=== PATIENT | female | born 1940 | race Caucasian/White ===

== ENCOUNTER 2016-05-14 15:14 | Outpatient (RCR) | payer MEDICARE, OTHER ==
[2016-03-26 09:03] LABS: BASOPHILS % (AUTO) 1 % (0-10); EOSINOPHILS # (AUTO) 0.1 10^3/uL (0.0-0.3); EOSINOPHILS % (AUTO) 3 % (0-10); LYMPHOCYTES # (AUTO) 1.2 X 10^3 (1.0-4.0); LYMPHOCYTES % (AUTO) 25 % (12-44); MEAN CORPUSCULAR HEMOGLOBIN 34 PG (25-34); MEAN CORPUSCULAR HGB CONC 35 G/DL (32-36); MEAN CORPUSCULAR VOLUME 98 FL (80-99); MEAN PLATELET VOLUME 9.6 FL (7.4-10.4); MONOCYTES # (AUTO) 0.5 X 10^3 (0.0-1.0); MONOCYTES % (AUTO) 10 % (0-12); NEUTROPHILS % (AUTO) 62 % (42-75); PLATELET COUNT 180 10^3/uL (130-400); RED BLOOD COUNT 4.19 10^6/uL (4.35-5.85); WHITE BLOOD COUNT 4.9 10^3/uL (4.3-11.0)
[2016-03-26 09:59] LABS: ALANINE AMINOTRANSFERASE 25 U/L (0-55); ALBUMIN 4.5 G/DL (3.2-4.5); ANION GAP 12 MMOL/L (5-14); ASPARTATE AMINO TRANSFERASE 30 U/L (5-34); BILIRUBIN,TOTAL 0.7 MG/DL (0.1-1.0); BLOOD UREA NITROGEN 19 MG/DL (7-18); BUN/CREATININE RATIO 23; CALCIUM 9.5 MG/DL (8.5-10.1); CARBON DIOXIDE 20 MMOL/L (21-32); CHLORIDE 104 MMOL/L (98-107); CREATININE SERUM 0.82 MG/DL (0.60-1.30); GFR ESTIMATED > 60; GLUCOSE 102 MG/DL (70-105); POTASSIUM 4.3 MMOL/L (3.6-5.0); SODIUM 136 MMOL/L (135-145); TOTAL PROTEIN 6.7 G/DL (6.4-8.2)
[~2016-05-14 15:14] MED LIST: ASCO100T6 PO; CALC-151 PO; CHOL100084 PO; HYDR-3454 PO; MULT-856 PO
[2016-05-14 16:29] LABS: THYROID STIMULATING HORMONE 2.6 UIU/ML (0.35-4.94)
== END 2016-06-24 | disposition home or self-care (01) ==
LOC: ONC 15:14
PROVIDERS: ATTEND Internal Medicine Hematology & Oncology
DX: C09.1 Malignant neoplasm of tonsillar pillar (anterior) (posterior) (principal); J44.9 Chronic obstructive pulmonary disease, unspecified; R91.1 Solitary pulmonary nodule; Z87.891 Personal history of nicotine dependence; Z92.21 Personal history of antineoplastic chemotherapy; Z92.3 Personal history of irradiation
CPT/HCPCS: 36591; 80053; 84439; 84443; 85025; 99213

== ENCOUNTER 2016-08-22 13:46 | Outpatient (RCR) | payer MEDICARE ==
--- OUTSIDE RECORDS SUMMARY | 2016-06-25 14:23 | XMS REPORT | Continuity of Care Document ---
Author Author [facility] Organization [facility] Address Unknown Phone Unavailable Care Team Providers Care Superintendent Commiss[employer] Name Role Phone JASMIN SLAAS DO PCP Insurance Providers Payer Name Policy Number Subscriber Name Relationship [employer] [id number] Cruz Jo 17 Self / Same As Patient Enter Insurance Name [id number] Cruz Jo Self / Same As Patient Advance Directives Directive Response Recorded Date/Time Advance Directives No 06/24/14 1:00pm Organ Donor No 06/24/14 1:00pm Problems No problem information available. Medications Current Home Medications Medication Dose Units Route Directions Days/Qty Instructions Start Date Multivits W-Fe,Other Min/Lut 1 Each 1 Each Oral Daily 06/18/14 Calcium Citrate/Vitamin D3 1 Each 1 Each Oral Daily 06/18/14 Cholecalciferol 1,000 Unit 1,000 Unit Oral Daily 06/18/14 Ascorbic Acid 100 Mg 100 Mg Oral Daily 06/18/14 Hydrocodone Bit/Acetaminophen 1 Each 1 Each Oral Every 6 Hours as needed for Pain 06/24/14 Social History Social History Problem Response Recorded Date/Time Recent Foreign Travel N [place] 05/14/2016 3:14pm Hospital Discharge Instructions No hospital discharge instructions. Plan of Care Prescriptions See Medication Section Functional Status No functional status results. Allergies, Adverse Reactions, Alerts Allergen Type Severity Reaction Status Last Updated ciprofloxacin ([id number]) Allergy Intermediate ANAPHYLAXIS Active Immunizations No immunization records. Vital Signs No known vital signs results. Results Laboratory Results Test Name Result Units Flags Reference Collection Date/Time Result Date/ Time Comments White Blood Count 4.9 10^3/uL 4.3-11.0 03/26/2016 8:50am 03/26/2016 9: 06am Red Blood Count 4.19 10^6/uL L 4.35-5.85 03/26/2016 8:50am 03/26/2016 9: 06am Hemoglobin 14.3 G/DL 11.5-16.0 03/26/2016 8:50am 03/26/2016 9:06am Hematocrit 41 % 35-52 03/26/2016 8:50am 03/26/2016 9:06am Mean Corpuscular Volume 98 FL 80-99 03/26/2016 8:50am 03/26/2016 9: 06am Mean Corpuscular Hemoglobin 34 PG 25-34 03/26/2016 8:50am 03/26/2016 9: 06am Mean Corpuscular Hemoglobin Concent 35 G/DL 32-36 03/26/2016 8:50am 03/2016 9:06am Red Cell Distribution Width 13.0 % 10.0-14.5 03/26/2016 8:50am 2015 9:06am Platelet Count 180 10^3/uL 130-400 03/26/2016 8:50am 03/26/2016 9:06am Mean Platelet Volume 9.6 FL 7.4-10.4 03/26/2016 8:50am 03/26/2016 9: 06am Neutrophils (%) (Auto) 62 % 42-75 03/26/2016 8:50am 03/26/2016 9:06am Lymphocytes (%) (Auto) 25 % 12-44 03/26/2016 8:50am 03/26/2016 9:06am Monocytes (%) (Auto) 10 % 0-12 03/26/2016 8:50am 03/26/2016 9:06am Eosinophils (%) (Auto) 3 % 0-10 03/26/2016 8:50am 03/26/2016 9:06am Basophils (%) (Auto) 1 % 0-10 03/26/2016 8:50am 03/26/2016 9:06am Neutrophils # (Auto) 3.0 X 10^3 1.8-7.8 03/26/2016 8:50am 03/26/2016 9: 06am Lymphocytes # (Auto) 1.2 X 10^3 1.0-4.0 03/26/2016 8:50am 03/26/2016 9: 06am Monocytes # (Auto) 0.5 X 10^3 0.0-1.0 03/26/2016 8:50am 03/26/2016 9: 06am Eosinophils # (Auto) 0.1 10^3/uL 0.0-0.3 03/26/2016 8:50am 03/26/2016 9 :06am Basophils # (Auto) 0.0 10^3/uL 0.0-0.1 03/26/2016 8:50am 03/26/2016 9: 06am Sodium Level 136 MMOL/L 135-145 03/26/2016 8:50am 03/26/2016 10:02am Potassium Level 4.3 MMOL/L 3.6-5.0 03/26/2016 8:50am 03/26/2016 10: 02am Chloride Level 104 MMOL/L 98-107 03/26/2016 8:50am 03/26/2016 10:02am Carbon Dioxide Level 20 MMOL/L L 21-32 03/26/2016 8:50am 03/26/2016 10: 02am Anion Gap 12 MMOL/L 5-14 03/26/2016 8:50am 03/26/2016 10:02am Blood Urea Nitrogen 19 MG/DL H 7-18 03/26/2016 8:50am 03/26/2016 10:02am Creatinine 0.82 MG/DL 0.60-1.30 03/26/2016 8:50am 03/26/2016 10:02am BUN/Creatinine Ratio 23 03/26/2016 8:50am 03/26/2016 10:02am Estimat Glomerular Filtration Rate > 60 03/26/2016 8:50am 2015 10:02am GFR INTERPRETIVE DATA UNITS FOR ESTIMATED GFR (eGFR): mL/min/1.73 M2 REFERENCE RANGE FOR ESTIMATED GFR (eGFR) eGFR NORMAL eGFR >60 MODERATELY DECREASED eGFR 30-59 SEVERLY DECREASED eGFR 15-29 KIDNEY FAILURE <15 (OR DIALYSIS) Glucose Level 102 MG/DL 70-105 03/26/2016 8:50am 03/26/2016 10:02am Calcium Level 9.5 MG/DL 8.5-10.1 03/26/2016 8:50am 03/26/2016 10:02am Total Bilirubin 0.7 MG/DL 0.1-1.0 03/26/2016 8:50am 03/26/2016 10:02am Alkaline Phosphatase 64 U/L 40-136 03/26/2016 8:50am 03/26/2016 10: 02am Aspartate Amino Transf (AST/SGOT) 30 U/L 5-34 03/26/2016 8:50am 2015 10:02am Alanine Aminotransferase (ALT/SGPT) 25 U/L 0-55 03/26/2016 8:50am 03/26 10:02am Total Protein 6.7 G/DL 6.4-8.2 03/26/2016 8:50am 03/26/2016 10:02am Albumin 4.5 G/DL 3.2-4.5 03/26/2016 8:50am 03/26/2016 10:02am Thyroid Stimulating Hormone (TSH) 2.60 UIU/ML 0.35-4.94 05/14/2016 2: 50pm 05/14/2016 4:30pm Free Thyroxine 1.20 NG/DL 0.70-1.48 05/14/2016 2:50pm 05/14/2016 4: 30pm Procedures No known history of procedures. Encounters Encounter Location Arrival/Admit Date Discharge/Depart Date Attending Provider Discharged [facility] 05/14/16 3:14pm 11:59pm YUMIKO HARTLEY MD
[2016-06-25 15:24] LABS: BASOPHILS # (AUTO) 0.1 10^3/uL (0.0-0.1); BASOPHILS % (AUTO) 1 % (0-10); EOSINOPHILS # (AUTO) 0.1 10^3/uL (0.0-0.3); EOSINOPHILS % (AUTO) 2 % (0-10); LYMPHOCYTES % (AUTO) 21 % (12-44); MEAN CORPUSCULAR HEMOGLOBIN 34 PG (25-34); MEAN CORPUSCULAR HGB CONC 34 G/DL (32-36); MEAN CORPUSCULAR VOLUME 100 FL (80-99); MEAN PLATELET VOLUME 9.5 FL (7.4-10.4); MONOCYTES # (AUTO) 0.5 X 10^3 (0.0-1.0); MONOCYTES % (AUTO) 10 % (0-12); NEUTROPHILS # (AUTO) 3.2 X 10^3 (1.8-7.8); NEUTROPHILS % (AUTO) 66 % (42-75); PLATELET COUNT 188 10^3/uL (130-400); RED BLOOD COUNT 4.11 10^6/uL (4.35-5.85); RED CELL DISTRIBUTION WIDTH 13.5 % (10.0-14.5); WHITE BLOOD COUNT 4.8 10^3/uL (4.3-11.0)
[2016-06-25 15:50] LABS: ALANINE AMINOTRANSFERASE 22 U/L (0-55); ALBUMIN 4.5 G/DL (3.2-4.5); ANION GAP 10 MMOL/L (5-14); ASPARTATE AMINO TRANSFERASE 30 U/L (5-34); BILIRUBIN,TOTAL 0.3 MG/DL (0.1-1.0); BLOOD UREA NITROGEN 22 MG/DL (7-18); BUN/CREATININE RATIO 25; CALCIUM 9.3 MG/DL (8.5-10.1); CARBON DIOXIDE 25 MMOL/L (21-32); CHLORIDE 101 MMOL/L (98-107); CREATININE SERUM 0.87 MG/DL (0.60-1.30); GFR ESTIMATED > 60; GLUCOSE 135 MG/DL (70-105); POTASSIUM 4.4 MMOL/L (3.6-5.0); SODIUM 136 MMOL/L (135-145); TOTAL PROTEIN 6.8 G/DL (6.4-8.2)
[2016-06-25 16:18] LABS: THYROID STIMULATING HORMONE 2.38 UIU/ML (0.35-4.94)
== END 2016-09-23 | disposition home or self-care (01) ==
LOC: ONC 13:46
PROVIDERS: ATTEND Internal Medicine Hematology & Oncology
DX: C09.1 Malignant neoplasm of tonsillar pillar (anterior) (posterior) (principal); E03.9 Hypothyroidism, unspecified; J44.9 Chronic obstructive pulmonary disease, unspecified; R91.1 Solitary pulmonary nodule; Z87.891 Personal history of nicotine dependence; Z92.21 Personal history of antineoplastic chemotherapy; Z92.3 Personal history of irradiation; Z45.2 Encounter for adjustment and management of vascular access device
CPT/HCPCS: 36591; 80053; 84439; 84443; 85025; 96523; 99213

== ENCOUNTER → 2016-12-25 | Outpatient (RCR) | payer MEDICARE, OTHER ==
[2016-12-12 10:40] LABS: BASOPHILS % (AUTO) 0 % (0-10); EOSINOPHILS # (AUTO) 0.1 10^3/uL (0.0-0.3); EOSINOPHILS % (AUTO) 1 % (0-10); LYMPHOCYTES % (AUTO) 12 % (12-44); MEAN CORPUSCULAR HEMOGLOBIN 34 PG (25-34); MEAN CORPUSCULAR HGB CONC 34 G/DL (32-36); MEAN CORPUSCULAR VOLUME 100 FL (80-99); MEAN PLATELET VOLUME 8.8 FL (7.4-10.4); MONOCYTES # (AUTO) 0.8 X 10^3 (0.0-1.0); MONOCYTES % (AUTO) 10 % (0-12); NEUTROPHILS # (AUTO) 6.2 X 10^3 (1.8-7.8); NEUTROPHILS % (AUTO) 77 % (42-75); PLATELET COUNT 194 10^3/uL (130-400); RED CELL DISTRIBUTION WIDTH 13.1 % (10.0-14.5); WHITE BLOOD COUNT 8.1 10^3/uL (4.3-11.0)
[2016-12-12 11:09] LABS: ALANINE AMINOTRANSFERASE 22 U/L (0-55); ALBUMIN 4.3 GM/DL (3.2-4.5); ANION GAP 8 MMOL/L (5-14); ASPARTATE AMINO TRANSFERASE 31 U/L (5-34); BILIRUBIN,TOTAL 0.7 MG/DL (0.1-1.0); BLOOD UREA NITROGEN 19 MG/DL (7-18); BUN/CREATININE RATIO 25; CALCIUM 9.3 MG/DL (8.5-10.1); CARBON DIOXIDE 26 MMOL/L (21-32); CHLORIDE 101 MMOL/L (98-107); CREATININE SERUM 0.75 MG/DL (0.60-1.30); GFR ESTIMATED > 60; GLUCOSE 110 MG/DL (70-105); HEMOLYSIS 24 (-100-29); LIPEMIA 62 (-100-49); SODIUM 135 MMOL/L (135-145); TOTAL PROTEIN 7.1 GM/DL (6.4-8.2)
[2016-12-12 11:32] LABS: THYROID STIMULATING HORMONE 2.41 UIU/ML (0.35-4.94)
[2016-12-25 13:38] LABS: BASOPHILS % (AUTO) 1 % (0-10); EOSINOPHILS # (AUTO) 0.1 10^3/uL (0.0-0.3); EOSINOPHILS % (AUTO) 2 % (0-10); LYMPHOCYTES % (AUTO) 19 % (12-44); MEAN CORPUSCULAR HEMOGLOBIN 34 PG (25-34); MEAN CORPUSCULAR HGB CONC 34 G/DL (32-36); MEAN CORPUSCULAR VOLUME 100 FL (80-99); MEAN PLATELET VOLUME 8.7 FL (7.4-10.4); MONOCYTES # (AUTO) 0.3 X 10^3 (0.0-1.0); MONOCYTES % (AUTO) 6 % (0-12); NEUTROPHILS # (AUTO) 3.7 X 10^3 (1.8-7.8); NEUTROPHILS % (AUTO) 72 % (42-75); PLATELET COUNT 190 10^3/uL (130-400); RED CELL DISTRIBUTION WIDTH 13.2 % (10.0-14.5); WHITE BLOOD COUNT 5.2 10^3/uL (4.3-11.0)
[2016-12-25 14:18] LABS: ALANINE AMINOTRANSFERASE 24 U/L (0-55); ALBUMIN 4.2 GM/DL (3.2-4.5); ANION GAP 9 MMOL/L (5-14); ASPARTATE AMINO TRANSFERASE 35 U/L (5-34); BILIRUBIN,TOTAL 0.5 MG/DL (0.1-1.0); BLOOD UREA NITROGEN 17 MG/DL (7-18); BUN/CREATININE RATIO 21; CALCIUM 9.2 MG/DL (8.5-10.1); CARBON DIOXIDE 26 MMOL/L (21-32); CHLORIDE 101 MMOL/L (98-107); CREATININE SERUM 0.82 MG/DL (0.60-1.30); GFR ESTIMATED > 60; GLUCOSE 188 MG/DL (70-105); POTASSIUM 4.4 MMOL/L (3.6-5.0); SODIUM 136 MMOL/L (135-145); TOTAL PROTEIN 6.8 GM/DL (6.4-8.2)
[2016-12-25 14:19] LABS: ERYTHROCYTE SEDIMENTATION RATE 4 MM/HR (0-30)
== END | disposition home or self-care (01) ==
LOC: ONC 09-26 14:40
PROVIDERS: ATTEND Internal Medicine Hematology & Oncology
DX: C09.1 Malignant neoplasm of tonsillar pillar (anterior) (posterior) (principal); J44.9 Chronic obstructive pulmonary disease, unspecified; R91.1 Solitary pulmonary nodule; Z87.891 Personal history of nicotine dependence; Z92.21 Personal history of antineoplastic chemotherapy; Z92.3 Personal history of irradiation; Z45.2 Encounter for adjustment and management of vascular access device
CPT/HCPCS: 36415; 36591; 80053; 84439; 84443; 85025; 85652; 96523; 99213

== ENCOUNTER 2017-01-25 14:02 | Outpatient (RCR) | payer OTHER ==
[2017-02-12] MEDS ORDERED: LEVO25TA5 PO (11:53)
[2017-02-12] MEDS ORDERED: VITA-189 PO (11:53)
[2017-02-12] MEDS ORDERED: RT-ALBUINH IH (11:53)
== END 2017-03-16 | disposition home or self-care (01) ==
LOC: ONC 14:02
PROVIDERS: ATTEND Internal Medicine Hematology & Oncology
DX: C09.1 Malignant neoplasm of tonsillar pillar (anterior) (posterior) (principal); J44.9 Chronic obstructive pulmonary disease, unspecified; R91.1 Solitary pulmonary nodule; Z87.891 Personal history of nicotine dependence; Z92.21 Personal history of antineoplastic chemotherapy; Z92.3 Personal history of irradiation; Z45.2 Encounter for adjustment and management of vascular access device
CPT/HCPCS: 96523

== ENCOUNTER 2017-02-12 05:36 | Outpatient (CLI) | payer MEDICARE ==
[~2017-02-12] VITALS: Ht 170.2 cm; Wt 52.2 kg
[2017-02-12] MEDS ORDERED: RT-ALBUINH IH (11:53)
[2017-02-12] MEDS ORDERED: LEVO25TA5 PO (11:53)
[2017-02-12] MEDS ORDERED: VITA-189 PO (11:53)
== END 2017-02-12 11:58 ==
LOC: PREOP 05:36
PROVIDERS: ATTEND Surgery
DX: Z01.818 Encounter for other preprocedural examination (principal); Z45.89 Encounter for adjustment and management of other implanted devices; Z96.89 Presence of other specified functional implants; Z85.831 Personal history of malignant neoplasm of soft tissue

== ENCOUNTER 2017-02-14 06:44 | Day surgery (SDC) | payer MEDICARE, OTHER ==
[~2017-02-14] VITALS: Ht 170.2 cm; Wt 52.2 kg
[~2017-02-14 06:44] MED LIST changes: +LEVO25TA5 PO; +RT-ALBUINH IH; +VITA-189 PO
[2017-02-14] MEDS ORDERED: NS (IVPB) 50 ML ONE (06:45)
[2017-02-14] MEDS ORDERED: ceFAZolin 1,000 MG (ANCEF) VIAL ONE (06:45)
[2017-02-14] MEDS ORDERED: CATHETER FLUSH 10 ML SYR IV PRN (07:15)
[2017-02-14] MEDS ORDERED: ceFAZolin 1 GM/NS 50 ML IVPB IV ONE ×2 (07:15)
[2017-02-14] MEDS ORDERED: LIDOCAINE 1% INJ 20 ML (XYLOCAINE) VIAL ONE (07:17)
[2017-02-14] MEDS ORDERED: BUPIVACAINE 0.5% 30 ML (SENSORCAINE) VIAL ONE (07:18)
[2017-02-14] MEDS ORDERED: LACTATED RINGERS 1,000 ML IV PRN (07:20)
[2017-02-14] MEDS ORDERED: PROPOFOL INJECTION 50 ML IV ONE (07:42)
--- NOTE | 2017-02-14 07:48 | Progress Note-Pre Operative ---
Pre-Operative Progress Note H&P Reviewed The H&P was reviewed, patient examined and no changes noted. Date Seen by Provider: Feb 14, 2017 Time Seen by Provider: 07:30 Date H&P Reviewed: Feb 14, 2017 Time H&P Reviewed: 07:30 Pre-Operative Diagnosis: head and neck cancer NITIN VALENCIA DO Feb 14, 2017 07:48
--- NOTE | 2017-02-14 07:50 | Discharge Inst-Simple/Standard ---
Discharge Inst-Standard Patient Instructions/Follow Up Plan of Care/Instructions/FU: 2 weeks [place] Activity as Tolerated: Yes Discharge Diet: Regular Diet Other Inst to Patient Follow up Appt: Make appointment for 2 week. Instructions: No lifting greater than 10 pounds. No strenuous activity. May shower in 24 hours, no tub bath or soaking. Use incentive spirometer at home as directed. No Smoking Skin/Wound Care: You have special glue over incision it will fall of on its own. Symptoms to Report: Appetite Changes, Extremity Discoloration, Numbness/Tingling, Swelling Increased , Bleeding Excessive, Eyesight Changes, Pain Increased, Urine Color Change, Constipation(Persistent), Fever over 101 degree F, Pain/Pressure in chest, Urinating Difficulty, Cough Up/Vomit Blood, Heart Beat Irreg/Pounding, Pain/ Pressure in jaw, Vaginal Bleeding Increase, Cramps in feet or legs, Lightheadedness, Pain/Pressure in shoulder, Diarrhea(Persistent), Memory Changes Suddenly, Questions/Concerns, Weight gain consecutive days, Dizziness/ Fainting, Nausea/Vomiting, Shortness of Breath, Weight gain over 2 pounds If questions or concerns contact your physician Or seek help at emergency department. NITIN VALENCIA DO Feb 14, 2017 07:50
[2017-02-14] MEDS ORDERED: LACTATED RINGERS 1,000 ML IV ONE (07:59)
[2017-02-14 08:09] VITALS: BP 101/69
--- NOTE | 2017-02-14 08:17 | Progress Note-Post Operative ---
Post-Operative Progess Note Surgeon (s)/Flatwork Finisher (s) Surgeon NITIN VALENCIA DO Flatwork Finisher: NA Pre-Operative Diagnosis head and neck cancer Post-Operative Diagnosis SAME Procedure & Operative Findings Date of Procedure 02/14/17 Procedure Performed/Findings PORT REMOVAL Anesthesia Type MAC C LOCAL Estimated Blood Loss Estimated blood loss (mL): MIN Specimens/Packing Specimens Removed NA NITIN VALENCIA DO Feb 14, 2017 08:17
[2017-02-14 08:35] VITALS: BP 129/85
[2017-02-14 09:05] VITALS: BP 133/78
[2017-02-14 09:12] VITALS: BP 133/78
--- NOTE | 2017-02-14 19:09 | OPERATIVE REPORT ---
DATE OF SERVICE: 02/14/2017 PREOPERATIVE DIAGNOSIS: Head and neck cancer. POSTOPERATIVE DIAGNOSIS: Head and neck cancer. PROCEDURE: Port removal. SURGEON: Nitin Malhotra DO ANESTHESIA: MAC with local 7 mL of 0.5% Marcaine and 1% lidocaine in 50:50 ratio. ESTIMATED BLOOD LOSS: Minimal. COMPLICATIONS: None. INDICATIONS: The patient is a 76-year-old female with head and neck cancer. Post-treatment, she wished to have port removed. She understands risks and benefits of procedure and wished to proceed with procedure. Consent was signed and in the chart. PROCEDURE: The patient was taken to the operating suite. She was prepped and draped in sterile fashion. Surgical pause was performed. Local anesthetic was infiltrated into the area. A #15 blade scalpel was used to make a skin incision over the port. Cautery was used to dissect down onto the port, which was then able to be grasped and removed in its entirety including the catheter. The wound was then irrigated with copious amounts of irrigation. Hemostasis had been achieved. The subcutaneous tissues were then reapproximated using 3-0 Vicryl. Skin was then closed using 4-0 Vicryl in a running subcuticular fashion. The area was then washed and dried and Dermabond was placed over the incision. The patient tolerated the procedure well without any complications. She was taken to the recovery room in stable condition. Job ID: [id number] DocumentID: [id number] Dictated Date: 02/14/2017 08:19:52 Layboy Tender Date: 02/14/2017 08:40:49 Dictated By: NITIN MALHOTRA DO
== END 2017-02-14 09:12 | disposition home or self-care (01) ==
LOC: SDC 06:44
PROVIDERS: ATTEND Surgery
DX: Z08 Encounter for follow-up examination after completed treatment for malignant neoplasm (principal); Z85.850 Personal history of malignant neoplasm of thyroid; J44.9 Chronic obstructive pulmonary disease, unspecified; E03.9 Hypothyroidism, unspecified; R91.8 Other nonspecific abnormal finding of lung field; Z87.891 Personal history of nicotine dependence; Z92.21 Personal history of antineoplastic chemotherapy; Z92.3 Personal history of irradiation; Z79.899 Other long term (current) drug therapy
CPT/HCPCS: 87081

== ENCOUNTER 2017-06-05 13:03 | Outpatient (RCR) | payer MEDICARE, OTHER ==
[2017-06-05 13:31] LABS: BASOPHILS # (AUTO) 0.1 10^3/uL (0.0-0.1); BASOPHILS % (AUTO) 1 % (0-10); EOSINOPHILS # (AUTO) 0.2 10^3/uL (0.0-0.3); EOSINOPHILS % (AUTO) 2 % (0-10); HEMATOCRIT 40 % (35-52); HEMOGLOBIN 14.4 G/DL (11.5-16.0); LYMPHOCYTES # (AUTO) 1.3 X 10^3 (1.0-4.0); LYMPHOCYTES % (AUTO) 19 % (12-44); MEAN CORPUSCULAR HEMOGLOBIN 34 PG (25-34); MEAN CORPUSCULAR HGB CONC 36 G/DL (32-36); MEAN CORPUSCULAR VOLUME 97 FL (80-99); MEAN PLATELET VOLUME 9.1 FL (7.4-10.4); MONOCYTES # (AUTO) 0.6 X 10^3 (0.0-1.0); MONOCYTES % (AUTO) 9 % (0-12); NEUTROPHILS # (AUTO) 4.7 X 10^3 (1.8-7.8); NEUTROPHILS % (AUTO) 69 % (42-75); PLATELET COUNT 217 10^3/uL (130-400); RED BLOOD COUNT 4.18 10^6/uL (4.35-5.85); RED CELL DISTRIBUTION WIDTH 13.4 % (10.0-14.5); WHITE BLOOD COUNT 6.8 10^3/uL (4.3-11.0)
[2017-06-05 13:53] LABS: ALANINE AMINOTRANSFERASE 29 U/L (0-55); ALBUMIN 4.6 GM/DL (3.2-4.5); ALKALINE PHOSPHATASE 85 U/L (40-136); BILIRUBIN,TOTAL 0.6 MG/DL (0.1-1.0); BUN/CREATININE RATIO 19; CALCIUM 9.9 MG/DL (8.5-10.1); CARBON DIOXIDE 30 MMOL/L (21-32); CHLORIDE 98 MMOL/L (98-107); CREATININE SERUM 0.89 MG/DL (0.60-1.30); GFR ESTIMATED > 60; GLUCOSE 110 MG/DL (70-105); MAGNESIUM 2.2 MG/DL (1.8-2.4); POTASSIUM 4.7 MMOL/L (3.6-5.0); SODIUM 138 MMOL/L (135-145); TOTAL PROTEIN 7.4 GM/DL (6.4-8.2)
[2017-06-05 14:16] LABS: FREE T4 (FREE THYROXINE) 1.29 NG/DL (0.70-1.48)
== END 2017-09-03 | disposition home or self-care (01) ==
LOC: ONC 13:03
PROVIDERS: ATTEND Internal Medicine Hematology & Oncology
DX: Z08 Encounter for follow-up examination after completed treatment for malignant neoplasm (principal); Z85.850 Personal history of malignant neoplasm of thyroid; J44.9 Chronic obstructive pulmonary disease, unspecified; E03.9 Hypothyroidism, unspecified; R91.8 Other nonspecific abnormal finding of lung field; Z87.891 Personal history of nicotine dependence; Z92.21 Personal history of antineoplastic chemotherapy; Z92.3 Personal history of irradiation; Z79.899 Other long term (current) drug therapy
CPT/HCPCS: 36415; 80053; 83735; 84439; 84443; 85025; 99213

== ENCOUNTER 2017-09-30 13:07 | Outpatient (RCR) | payer MEDICARE, OTHER ==
--- NOTE | 2017-09-30 15:14 | Diagnostic Imaging Report ---
INDICATION: COPD and pulmonary nodules. TIME OF EXAMINATION: 03:02 p.m. COMPARISON: Correlation is made with prior study from 06/24/2014. FINDINGS: The heart size is stable. The lungs are hyperinflated consistent with COPD. No parenchymal infiltrates are seen. No nodule or mass is identified. There appears to be some scarring or subsegmental atelectasis in the left lung base. No pneumothorax is identified. IMPRESSION: COPD and left basilar atelectasis versus scarring. No other significant abnormality is detected. Dictated by: Dictated on workstation # [id number]
[2017-10-29 14:00] VITALS: BP 104/62
[2017-10-29 15:00] VITALS: BP 110/76
[2017-10-31 14:10] VITALS: BP 100/58
[2017-10-31 14:55] VITALS: BP 100/67
[2017-11-05 14:00] VITALS: BP_SYST 104; BP_SYST 118; BP_DIAS 62; BP_DIAS 64
[2017-11-05 15:00] VITALS: BP 102/60
[2017-11-07 14:00] VITALS: BP 115/50
[2017-11-07 15:00] VITALS: BP 120/60
[2017-11-12 13:50] VITALS: BP 100/50
[2017-11-12 15:00] VITALS: BP 106/80
[2017-11-14 14:00] VITALS: BP 112/62
[2017-11-14 15:00] VITALS: BP 96/70
[2017-11-19 14:00] VITALS: BP 105/50
[2017-11-19 15:00] VITALS: BP 130/50
[2017-11-21 13:55] VITALS: BP 100/80
[2017-11-21 14:56] VITALS: BP 120/60
[2017-11-26 13:50] VITALS: BP 120/60
[2017-11-26 15:00] VITALS: BP 115/50
[2017-11-28 14:50] VITALS: BP 100/50
[2017-12-03 13:30] VITALS: BP 100/60
[2017-12-03 15:00] VITALS: BP 121/50
[2017-12-05 14:55] VITALS: BP 122/70
[2017-12-05 15:00] VITALS: BP 120/60
[2017-12-12 13:40] VITALS: BP 116/62
[2017-12-12 14:45] VITALS: BP 102/68
[2017-12-17 14:00] VITALS: BP 115/40
[2017-12-17 15:00] VITALS: BP 120/75
[2017-12-19 14:00] VITALS: BP 120/60
[2017-12-19 14:49] VITALS: BP 142/80
[2017-12-24 14:00] VITALS: BP 118/58
[2017-12-24 15:00] VITALS: BP 118/40
[2017-12-26 13:55] VITALS: BP 120/60
[2017-12-26 15:05] VITALS: BP 111/60
[2017-12-31 09:30] VITALS: BP 120/70
[2017-12-31 10:45] VITALS: BP 116/60
== END 2017-12-29 | disposition home or self-care (01) ==
LOC: PULM 13:07
PROVIDERS: ATTEND Nurse Practitioner Family
DX: J18.9 Pneumonia, unspecified organism (principal); R91.1 Solitary pulmonary nodule; J43.8 Other emphysema; R06.09 Other forms of dyspnea; R09.02 Hypoxemia
CPT/HCPCS: 71046; 99211

== ENCOUNTER 2017-12-05 12:52 | Outpatient (RCR) | payer MEDICARE, OTHER ==
[2017-12-03 13:30] LABS: BASOPHILS # (AUTO) 0.1 10^3/uL (0.0-0.1); BASOPHILS % (AUTO) 1 % (0-10); EOSINOPHILS # (AUTO) 0.1 10^3/uL (0.0-0.3); EOSINOPHILS % (AUTO) 2 % (0-10); HEMATOCRIT 40 % (35-52); HEMOGLOBIN 13.7 G/DL (11.5-16.0); LYMPHOCYTES # (AUTO) 1.1 X 10^3 (1.0-4.0); LYMPHOCYTES % (AUTO) 19 % (12-44); MEAN CORPUSCULAR HEMOGLOBIN 33 PG (25-34); MEAN CORPUSCULAR HGB CONC 34 G/DL (32-36); MEAN CORPUSCULAR VOLUME 98 FL (80-99); MEAN PLATELET VOLUME 9.1 FL (7.4-10.4); MONOCYTES # (AUTO) 0.5 X 10^3 (0.0-1.0); MONOCYTES % (AUTO) 8 % (0-12); NEUTROPHILS # (AUTO) 4.3 X 10^3 (1.8-7.8); NEUTROPHILS % (AUTO) 70 % (42-75); PLATELET COUNT 205 10^3/uL (130-400); RED BLOOD COUNT 4.09 10^6/uL (4.35-5.85); RED CELL DISTRIBUTION WIDTH 13.3 % (10.0-14.5); WHITE BLOOD COUNT 6.1 10^3/uL (4.3-11.0)
[2017-12-03 13:42] LABS: BUN/CREATININE RATIO 20; CARBON DIOXIDE 29 MMOL/L (21-32); CHLORIDE 102 MMOL/L (98-107); CREATININE SERUM 0.87 MG/DL (0.60-1.30); POTASSIUM 4.2 MMOL/L (3.6-5.0); SODIUM 140 MMOL/L (135-145)
[2017-12-03 13:43] LABS: ALANINE AMINOTRANSFERASE 23 U/L (0-55); ALBUMIN 4.5 GM/DL (3.2-4.5); ALKALINE PHOSPHATASE 79 U/L (40-136); BILIRUBIN,TOTAL 0.4 MG/DL (0.1-1.0); CALCIUM 10.1 MG/DL (8.5-10.1); GFR ESTIMATED > 60; GLUCOSE 132 MG/DL (70-105); TOTAL PROTEIN 6.9 GM/DL (6.4-8.2)
== END 2018-03-03 | disposition home or self-care (01) ==
LOC: ONC 12:52
PROVIDERS: ATTEND Internal Medicine Hematology & Oncology
DX: Z08 Encounter for follow-up examination after completed treatment for malignant neoplasm (principal); Z85.850 Personal history of malignant neoplasm of thyroid; J44.9 Chronic obstructive pulmonary disease, unspecified; E89.0 Postprocedural hypothyroidism; R91.8 Other nonspecific abnormal finding of lung field; Z87.891 Personal history of nicotine dependence; Z92.21 Personal history of antineoplastic chemotherapy; Z92.3 Personal history of irradiation; Z79.899 Other long term (current) drug therapy
CPT/HCPCS: 36415; 80053; 84443; 85025; 99213

== ENCOUNTER 2018-04-29 13:21 | Outpatient (RCR) | payer MEDICARE, OTHER | END 2018-07-28 | disposition home or self-care (01) | LOC: ONC 13:21 | PROVIDERS: ATTEND Internal Medicine Hematology & Oncology | DX: Z08 Encounter for follow-up examination after completed treatment for malignant neoplasm (principal); Z85.850 Personal history of malignant neoplasm of thyroid; J44.9 Chronic obstructive pulmonary disease, unspecified; E89.0 Postprocedural hypothyroidism; R91.8 Other nonspecific abnormal finding of lung field; Z87.891 Personal history of nicotine dependence; Z92.21 Personal history of antineoplastic chemotherapy; Z92.3 Personal history of irradiation; Z79.899 Other long term (current) drug therapy | CPT/HCPCS: 99213 ==

== ENCOUNTER 2018-07-31 14:25 | Outpatient (RCR) | payer MEDICARE ==
[2018-07-31 15:12] LABS: BASOPHILS # (AUTO) 0.1 10^3/uL (0.0-0.1); BASOPHILS % (AUTO) 1 % (0-10); EOSINOPHILS # (AUTO) 0.1 10^3/uL (0.0-0.3); EOSINOPHILS % (AUTO) 2 % (0-10); HEMATOCRIT 39 % (35-52); HEMOGLOBIN 13.3 G/DL (11.5-16.0); LYMPHOCYTES # (AUTO) 0.9 X 10^3 (1.0-4.0); LYMPHOCYTES % (AUTO) 13 % (12-44); MEAN CORPUSCULAR HEMOGLOBIN 34 PG (25-34); MEAN CORPUSCULAR HGB CONC 34 G/DL (32-36); MEAN CORPUSCULAR VOLUME 99 FL (80-99); MEAN PLATELET VOLUME 9.1 FL (7.4-10.4); MONOCYTES # (AUTO) 0.6 X 10^3 (0.0-1.0); MONOCYTES % (AUTO) 9 % (0-12); NEUTROPHILS # (AUTO) 5.1 X 10^3 (1.8-7.8); NEUTROPHILS % (AUTO) 76 % (42-75); PLATELET COUNT 237 10^3/uL (130-400); RED CELL DISTRIBUTION WIDTH 13.4 % (10.0-14.5); WHITE BLOOD COUNT 6.8 10^3/uL (4.3-11.0)
[2018-07-31 15:35] LABS: ALANINE AMINOTRANSFERASE 23 U/L (0-55); ALBUMIN 4.5 GM/DL (3.2-4.5); ALKALINE PHOSPHATASE 85 U/L (40-136); BILIRUBIN,TOTAL 0.5 MG/DL (0.1-1.0); BUN/CREATININE RATIO 18; CARBON DIOXIDE 30 MMOL/L (21-32); CHLORIDE 98 MMOL/L (98-107); CREATININE SERUM 0.76 MG/DL (0.60-1.30); GFR ESTIMATED > 60; GLUCOSE 105 MG/DL (70-105); MAGNESIUM 2.3 MG/DL (1.8-2.4); POTASSIUM 4.6 MMOL/L (3.6-5.0); SODIUM 135 MMOL/L (135-145); TOTAL PROTEIN 7.1 GM/DL (6.4-8.2)
== END 2018-10-29 | disposition home or self-care (01) ==
LOC: ONC 14:25
PROVIDERS: ATTEND Internal Medicine Hematology & Oncology
DX: Z08 Encounter for follow-up examination after completed treatment for malignant neoplasm (principal); Z85.850 Personal history of malignant neoplasm of thyroid; J44.9 Chronic obstructive pulmonary disease, unspecified; E89.0 Postprocedural hypothyroidism; R91.8 Other nonspecific abnormal finding of lung field; Z87.891 Personal history of nicotine dependence; Z92.21 Personal history of antineoplastic chemotherapy; Z92.3 Personal history of irradiation; Z79.899 Other long term (current) drug therapy
CPT/HCPCS: 36415; 80053; 83735; 84436; 84443; 85025; 99213

== ENCOUNTER → 2019-01-14 | Outpatient (CLI) | payer MEDICARE ==
[~2019-01-14] MED LIST changes: +RT-ALBUTEROL SULF 2.5 MG/3 ML PRE-MIX VIAL INH ONE; +RT-ALBUTEROL SULF 2.5 MG/3 ML PRE-MIX VIAL ONE
== END ==
LOC: RT 13:50
PROVIDERS: ATTEND Nurse Practitioner Family
DX: J44.9 Chronic obstructive pulmonary disease, unspecified (principal); Z87.891 Personal history of nicotine dependence
CPT/HCPCS: 94060; 94726; 94729

== ENCOUNTER → 2019-02-06 | Outpatient (CLI) | payer MEDICARE ==
[~2019-02-06] MED LIST changes: -RT-ALBUTEROL SULF 2.5 MG/3 ML PRE-MIX VIAL INH ONE; -RT-ALBUTEROL SULF 2.5 MG/3 ML PRE-MIX VIAL ONE
[2019-02-06 13:35] LABS: BASOPHILS % (AUTO) 1 % (0-10); EOSINOPHILS # (AUTO) 0.1 10^3/uL (0.0-0.3); EOSINOPHILS % (AUTO) 2 % (0-10); HEMATOCRIT 41 % (35-52); HEMOGLOBIN 13.5 G/DL (11.5-16.0); LYMPHOCYTES # (AUTO) 1.1 X 10^3 (1.0-4.0); LYMPHOCYTES % (AUTO) 18 % (12-44); MEAN CORPUSCULAR HEMOGLOBIN 33 PG (25-34); MEAN CORPUSCULAR HGB CONC 33 G/DL (32-36); MEAN CORPUSCULAR VOLUME 100 FL (80-99); MEAN PLATELET VOLUME 9.1 FL (7.4-10.4); MONOCYTES # (AUTO) 0.4 X 10^3 (0.0-1.0); MONOCYTES % (AUTO) 7 % (0-12); NEUTROPHILS # (AUTO) 4.5 X 10^3 (1.8-7.8); NEUTROPHILS % (AUTO) 73 % (42-75); PLATELET COUNT 219 10^3/uL (130-400); RED CELL DISTRIBUTION WIDTH 13.2 % (10.0-14.5); WHITE BLOOD COUNT 6.2 10^3/uL (4.3-11.0)
[2019-02-06 13:55] LABS: ALANINE AMINOTRANSFERASE 25 U/L (0-55); ALBUMIN 4.5 GM/DL (3.2-4.5); ALKALINE PHOSPHATASE 98 U/L (40-136); BILIRUBIN,TOTAL 0.4 MG/DL (0.1-1.0); BUN/CREATININE RATIO 26; CALCIUM 9.8 MG/DL (8.5-10.1); CARBON DIOXIDE 30 MMOL/L (21-32); CHLORIDE 100 MMOL/L (98-107); CREATININE SERUM 0.78 MG/DL (0.60-1.30); GFR ESTIMATED > 60; GLUCOSE 118 MG/DL (70-105); MAGNESIUM 1.6 MG/DL (1.6-2.4); POTASSIUM 4.2 MMOL/L (3.6-5.0); SODIUM 139 MMOL/L (135-145); TOTAL PROTEIN 7.1 GM/DL (6.4-8.2)
== END ==
LOC: EDSTATUS 10-30 15:36 → ONC 13:14
PROVIDERS: ATTEND Internal Medicine Hematology & Oncology
DX: Z08 Encounter for follow-up examination after completed treatment for malignant neoplasm (principal); Z85.850 Personal history of malignant neoplasm of thyroid; J44.9 Chronic obstructive pulmonary disease, unspecified; E89.0 Postprocedural hypothyroidism; Z87.891 Personal history of nicotine dependence; Z92.21 Personal history of antineoplastic chemotherapy; Z92.3 Personal history of irradiation; Z79.899 Other long term (current) drug therapy
CPT/HCPCS: 36415; 80053; 83735; 84436; 84443; 85025; 99213

== ENCOUNTER → 2019-08-07 | Outpatient (CLI) | payer MEDICARE ==
[2019-08-07 13:30] LABS: BASOPHILS % (AUTO) 1 % (0-10); EOSINOPHILS # (AUTO) 0.1 10^3/uL (0.0-0.3); EOSINOPHILS % (AUTO) 2 % (0-10); HEMATOCRIT 43 % (35-52); HEMOGLOBIN 14.1 G/DL (11.5-16.0); LYMPHOCYTES # (AUTO) 1.5 X 10^3 (1.0-4.0); LYMPHOCYTES % (AUTO) 19 % (12-44); MEAN CORPUSCULAR HEMOGLOBIN 33 PG (25-34); MEAN CORPUSCULAR HGB CONC 33 G/DL (32-36); MEAN CORPUSCULAR VOLUME 99 FL (80-99); MEAN PLATELET VOLUME 9.3 FL (7.4-10.4); MONOCYTES # (AUTO) 0.7 X 10^3 (0.0-1.0); MONOCYTES % (AUTO) 9 % (0-12); NEUTROPHILS # (AUTO) 5.3 X 10^3 (1.8-7.8); NEUTROPHILS % (AUTO) 70 % (42-75); PLATELET COUNT 212 10^3/uL (130-400); RED CELL DISTRIBUTION WIDTH 14.1 % (10.0-14.5); WHITE BLOOD COUNT 7.6 10^3/uL (4.3-11.0)
[2019-08-07 13:50] LABS: ALANINE AMINOTRANSFERASE 26 U/L (0-55); ALBUMIN 4.7 GM/DL (3.2-4.5); ALKALINE PHOSPHATASE 77 U/L (40-136); BILIRUBIN,TOTAL 0.4 MG/DL (0.1-1.0); BUN/CREATININE RATIO 25; CALCIUM 9.7 MG/DL (8.5-10.1); CARBON DIOXIDE 23 MMOL/L (21-32); CHLORIDE 102 MMOL/L (98-107); CREATININE SERUM 0.81 MG/DL (0.60-1.30); GFR ESTIMATED > 60; GLUCOSE 104 MG/DL (70-105); SODIUM 139 MMOL/L (135-145); TOTAL PROTEIN 7.4 GM/DL (6.4-8.2)
== END ==
LOC: ONC 13:20
PROVIDERS: ATTEND Internal Medicine Hematology & Oncology
DX: C09.1 Malignant neoplasm of tonsillar pillar (anterior) (posterior) (principal); E03.9 Hypothyroidism, unspecified; J43.9 Emphysema, unspecified; Z87.891 Personal history of nicotine dependence; Z92.3 Personal history of irradiation; Z96.641 Presence of right artificial hip joint; Z96.642 Presence of left artificial hip joint; Z98.890 Other specified postprocedural states
CPT/HCPCS: 80053; 84443; 85025; 99213